=== PATIENT | female | born 1960 | race Caucasian/White ===

== ENCOUNTER → 2018-01-14 08:32 | Outpatient (CLI) | payer BC, SELFPAY ==
--- NOTE | 2018-01-14 08:35 | BI_ITS ---
MAMMOGRAPHY - BILATERAL SCREENING REASON FOR EXAM: Female, 57 years old. Routine annual screening examination. PERTINENT HISTORY: Non-contributory. TECHNIQUE: Digital bilateral breast hayley (3D mammographic acquisition) in the CC and MLO projections. 2-D mediolateral oblique (MLO) and craniocaudad (CC) views of both breasts were obtained. CAD: Full Field Digital Mammography with Computer Added Detection was performed. COMPARISON: Comparison is made with prior study dated November 06, 2016 and September 20, 2015. FINDINGS: Breast Composition: There are scattered areas of fibroglandular density. There are no dominant masses or suspicious calcifications. Skin calcifications are seen. No other significant abnormalities are identified. There has been no significant change since the prior study. BI/SCREENING MAMM (CAD), BILAT IMPRESSION: Stable bilateral screening mammogram. Yearly follow-up mammogram recommended. (A) ASSESSMENT CATEGORY: BIRADS Category 2: Benign. A letter regarding these results will be sent to the patient by the facility within 30 days. Approximately 10% of breast cancers are not detected by mammography. A normal mammogram should not delay biopsy of a clinically suspicious abnormality. [id number] Electronically Signed: Stalin Ramirez MD at 15:24 EDT Tel [phone], Service support ,
== END ==
PROVIDERS: Family Provider Family Medicine; PCP Family Medicine; Visit Provider Family Medicine
DX: Z12.31 Encounter for screening mammogram for malignant neoplasm of breast (principal)
CPT/HCPCS: 77063; 77067

== ENCOUNTER 2018-07-13 08:30 | Outpatient (RCR) | payer BC, SELFPAY ==
--- NOTE | 2018-06-15 18:50 | HP.PTEVAL ---
Patient's Visit Information JUVE OCHOA is a 58 year old F referred to Physical Therapy by Nolberto Thomas with a diagnosis of L piriformis syndrome. Date of Evaluation: 06/15/18 Physical Therapist: Olesya Miller - Visit Plan Frequency: 2x /Week Duration: 4 Weeks Plan: 2X/ week for 4 weeks for L hip stretching (renny piriformis), strengthening, functional activities , gait training with HEP and modalities if needed. - Subjective Subjective: This started in January where she had pain in the L buttcheek. No-z-rays. Pt was treated with Prednizone and got a little better and on Prednizone still every other day. SHe has played with this all summer. It would get better and then it gets worse and she does not want to walk. She has no N&T in her legs. It makes her not sleep well. She can not lay on that side and she wants to sit off that side. Pain takes the pain away but not solving source. Her pain is not everyday. When flared up it hurts to sit, stand and walk. Strong hip issues in the family.... Can not walk when flared up. She has had about 5 flare ups since January. - Pain L hip pain Pain Intensity (Out of 10): 4 - Objective Gait: walks with L hip drop, normal heel to toe gait pattern. IR AROM 33 degrees R and 24 degrees on the L. LE MMT: B hip flex 4-/5, R hip abd 4/5 and L 4-/5, R hip ext 4/5 and L 4-/5, B knee ext/ flex 4+/5. Pt is able to walk on heels and toes. Trunk AROM: flexion 100%, ext 100%, SB B 100%, Rot B 100%. Good B HS length. No B piriformis muscle belly tenderness but tenderness at ischial tuberosity. Tight B piriformis but increased tightness and increase pain on the L. After supine manual pirifomis stretching 30 sec X 3 B pt was able to sit and walk with a little less pain. - Goals Goal 1:: I HEP Goal Time Frame: 2 Weeks Goal 2:: Be able to resume walking without having pain Goal Time Frame: 4-6 Weeks Goal 3:: Be able to sit as long as need be without pain Goal Time Frame: 4-6 Weeks Goal 4:: Increase L piriformis muscle length without having pain Goal Time Frame: 4-6 Weeks Goal 5:: Increase L hip strength to be 4/5 hip flex, abd, ext Goal Time Frame: 4-6 Weeks - Rehabilitation Potential Rehabilitation Potential: Good - Anticipated Interventions Patient/Client Instruction: Educate patient on: Condition, Plan of Care For the Purpose of:: To decrease pain, To decrease swelling/inflammation, To increase ROM, To improve nutrient delivery to tissue, To improve muscle performance and motor function, To improve ability to perform ADL's, To increase tolerance to activity/condition/position, To improve performance and independence with ADL's, To improve ability of physical actions for home/community/work/leisure, To improve gait and locomotor functions, To improve health of tissue, To increase flexibility/ROM Therapeutic Exercise to Include: Strength training, Flexibilty training, Gait and locomotor training, Passive ROM, Active ROM For the Purpose of:: To decrease pain, To decrease swelling/inflammation, To increase ROM, To improve nutrient delivery to tissue, To improve muscle performance and motor function, To improve ability to perform ADL's, To increase tolerance to activity/condition/position, To improve performance and independence with ADL's, To decrease level of supervision to perform tasks, To improve ability of physical actions for home/community/work/leisure, To improve gait and locomotor functions, To improve health of tissue, To decrease soft tissue restriction, To increase flexibility/ROM IF ES: Yes Cryotherapy (ice pack, ice massage): Yes Thermo therapy (hot pack): Yes Ultrasound (thermal/non thermal): Yes For the Purpose of:: To decrease pain, To decrease swelling/inflammation, To increase ROM, To improve nutrient delivery to tissue Thank you for the opportunity to evaluate your patient. For Medicare and Medicare HMO plans, please review the plan of care and approve it. It will need to be FAXED BACK to us at [phone] for Medicare purposes. Please let me know if there are questions or concerns regarding this plan of care. Physician Signature: Date:
--- NOTE | 2018-07-13 09:42 | HP.PTDCSUM ---
HP - PT D/C Summary It has been my pleasure to treat JUVE OCHOA under orders from Nolberto Thomas, for the diagnosis of L piriformis syndrome for a total of 7 visit(s). Discharge Date: 07/13/18 Please see the following information for a summary of their discharge status. - Subjective Subjective: No pain. The last time she had pain was about a week or so ago. Still doing stretches at home, not as regiously. She did go to the [facility]. - Pain L hip pain Pain Intensity (Out of 10): 2 - Overall Improvement % Improvement: 50 - Objective Objective/Function: LE MMT: R hip flex 4/5, and L 4-/5, B hip abd 4/5, B hip ext 3+/5, B knee flex and knee ext 4/5. Pt can sit for 2 hours without pain (that is the longeest she has sat recently) - Goals Goal 1:: I HEP Goal Progress: Goal Met Goal 2:: Be able to resume walking without having pain Goal Progress: Goal Met Goal 3:: Be able to sit as long as need be without pain Goal Progress: Progressing Goal 4:: Increase L piriformis muscle length without having pain Goal Progress: Goal Met Goal 5:: Increase L hip strength to be 4/5 hip flex, abd, ext Goal Progress: Goal Met - Plan Plan: Re check next visit and make sure pt understands HEP - D/C Information Discharge Comments: DC PT to HEP If there are questions or concerns regarding this patient's physical therapy, please feel free to call me at [phone]. Thank you for the referral of this patient. Sincerely, Olesya Miller
== END 2018-07-13 19:00 | disposition home or self-care (01) ==
LOC: PT 08:30
PROVIDERS: Family Provider Family Medicine; PCP Family Medicine; Referring Provider Family Medicine; Visit Provider Family Medicine
DX: G57.02 Lesion of sciatic nerve, left lower limb (principal)
CPT/HCPCS: 97035; 97110; 97161; 97530

== ENCOUNTER → 2018-11-04 14:00 | Outpatient (CLI) | payer BC, SELFPAY ==
--- NOTE | 2018-11-04 14:04 | RAD_ITS ---
STUDY: X-RAY CHEST REASON FOR EXAM: Female, 58 years old. Sarcoidosis TECHNIQUE: PA and lateral views of the chest. COMPARISON: 11/10/2014 FINDINGS: The lungs are clear and expanded. There is no demonstrated pleural abnormality. Normal size heart. Normal mediastinum and rosalee. Normal visualized pulmonary arteries. Normal visualized aortic arch and descending thoracic aorta. Normal visualized thoracic spine. Normal visualized ribs, clavicles, and shoulders. There is no demonstrated abnormality of the visualized soft tissue structures of the upper abdomen. RAD/Chest PA and Lateral IMPRESSION: Normal x-ray examination of the chest. Electronically Signed: Chris Swan DO at 16:03 EDT Tel , Service support ,
== END ==
PROVIDERS: Family Provider Family Medicine; PCP Family Medicine; Referring Provider Family Medicine; Visit Provider Family Medicine
DX: D86.9 Sarcoidosis, unspecified (principal)
CPT/HCPCS: 71046

== ENCOUNTER → 2019-06-30 09:58 | Outpatient (CLI) | payer BC, SELFPAY ==
[2019-07-04 16:22] LABS: HPV Reflexed? NOT INDICATED
== END ==
PROVIDERS: Family Provider Family Medicine; PCP Family Medicine; Referring Provider Family Medicine; Visit Provider Nurse Practitioner Family
DX: Z00.00 Encounter for general adult medical examination without abnormal findings (principal)
CPT/HCPCS: 88175; G0145

== ENCOUNTER → 2019-07-07 08:06 | Outpatient (CLI) | payer BC, SELFPAY ==
[2019-07-07 10:54] LABS: ALB/GLOB Ratio 0.9 RATIO (0.9-2.4); AST(SGOT) 14 U/L (15-37); Alanine Aminotransfer ALT/SGPT 19 U/L (13-56); Albumin, Serum 3.5 g/dL (3.2-5.0); Alkaline Phosphatase 91 U/L (45-117); BUN 22 mg/dL (7-18); BUN/Creat Ratio 25.8 RATIO (10-20); Calcium,Total 8.7 mg/dL (8.5-10.1); Cholesterol 187 mg/dL (200); Creatinine, Serum 0.85 mg/dL (0.55-1.02); EST Glomerular Filtration Rate 73 mL/min (>60); Est Glom Filt Rate - Afr Amer 88 mL/min (>60); Globulin 4.1 g/dL (2.2-4.2); Glucose 88 mg/dL (74-106); Protein, Total 7.6 g/dL (6.4-8.2); Triglycerides 72 mg/dL
[2019-07-07 10:55] LABS: Anion Gap 5 (5-15); Chloride 108 mmol/L (98-107); High Density Lipoprotein 52 mg/dL; Potassium 3.9 mmol/L (3.5-5.1); Sodium Level 141 mmol/L (136-145); Thyroid Stim Hormone (TSH) 0.06 uIU/mL (0.358-3.74); Very Low Density Lipoprotein 14 mg/dL (5-40)
== END ==
PROVIDERS: Nurse Practitioner Family; Family Provider Family Medicine; PCP Family Medicine; Referring Provider Family Medicine; Visit Provider Family Medicine
DX: Z00.00 Encounter for general adult medical examination without abnormal findings (principal); E03.9 Hypothyroidism, unspecified
CPT/HCPCS: 36415; 80053; 80061; 84443

== ENCOUNTER → 2019-07-27 07:58 | Outpatient (CLI) | payer BC, SELFPAY ==
--- NOTE | 2019-07-27 08:00 | BI_ITS ---
MAMMOGRAPHY - BILATERAL SCREENING REASON FOR EXAM: Female, 59 years old. Routine annual screening examination. PERTINENT HISTORY: Non-contributory. TECHNIQUE: Digital bilateral breast thelma (3D mammographic acquisition) in the CC and MLO projections. 2-D mediolateral oblique (MLO) and craniocaudad (CC) views of both breasts were obtained. CAD: Full Field Digital Mammography with Computer Added Detection was performed. COMPARISON: Comparison is made with prior study dated January 14, 2018 and November 06, 2016. FINDINGS: Breast Composition: There are scattered areas of fibroglandular density. There are no dominant masses or suspicious calcifications. No other significant abnormalities are identified. There has been no significant change since the prior study. BI/SCREEN MAMM (CAD) W/TEHLMA BILAT IMPRESSION: Stable bilateral screening mammogram. Yearly follow-up mammogram recommended. (A) ASSESSMENT CATEGORY: BIRADS Category 1: Negative. A letter regarding these results will be sent to the patient by the facility within 30 days. Approximately 10% of breast cancers are not detected by mammography. A normal mammogram should not delay biopsy of a clinically suspicious abnormality. [id number] Electronically Signed: Stalin Ramirez, at 10:23 EST , Service support ,
== END ==
PROVIDERS: Family Provider Family Medicine; PCP Family Medicine; Referring Provider Family Medicine; Visit Provider Family Medicine
DX: Z12.31 Encounter for screening mammogram for malignant neoplasm of breast (principal)
CPT/HCPCS: 77063; 77067

== ENCOUNTER → 2019-10-14 08:43 | Outpatient (CLI) | payer OTHER, SELFPAY ==
[2019-10-14 10:38] LABS: Thyroid Stim Hormone (TSH) 0.35 uIU/mL (0.358-3.74)
== END ==
PROVIDERS: PCP Family Medicine; Referring Provider Family Medicine; Visit Provider Family Medicine
DX: E03.9 Hypothyroidism, unspecified (principal)
CPT/HCPCS: 36415; 84443

== ENCOUNTER → 2019-10-19 10:00 | Outpatient (CLI) | payer OTHER, SELFPAY ==
[2019-10-19 12:56] LABS: T4 Free Direct 1.18 ng/dL (0.76-1.46)
[2019-10-19 13:20] LABS: Vitamin D,25 Hydroxy 25.9 ng/mL
== END ==
PROVIDERS: PCP Family Medicine; Referring Provider Family Medicine; Visit Provider Family Medicine
DX: D86.9 Sarcoidosis, unspecified (principal); E03.9 Hypothyroidism, unspecified
CPT/HCPCS: 36415; 82306; 84439

== ENCOUNTER → 2019-10-26 08:44 | Outpatient (CLI) | payer OTHER, SELFPAY ==
--- NOTE | 2019-10-26 08:54 | US_ITS ---
STUDY: THYROID ULTRASOUND REASON FOR EXAM: Female, 59 years old. NODULES TECHNIQUE: Ultrasound evaluation of the thyroid was performed with real-time and static paz-scale imaging. COMPARISON: None. FINDINGS: RIGHT LOBE: The right lobe of the thyroid gland measures 6.8 x 2.9 x 3.5 cm. There is a heterogeneous echotexture. There are no demonstrated solid, cystic or complex lesions. LEFT LOBE: The left thyroid lobe is surgically absent. ISTHMUS: The isthmus measures 3 mm . The regional lymph nodes are normal. US/Thyroid IMPRESSION: Heterogeneously echogenic mildly enlarged right thyroid lobe. No focal nodule, cyst, or calcification is noted. The left thyroid lobe is surgically absent. Electronically Signed: Jesse Warner MD at 17:29 EDT , Service support ,
--- NOTE | 2019-10-26 09:00 | RAD_ITS ---
STUDY: X-RAY - ESOPHAGUS (BARIUM SWALLOW) WITH FLUOROSCOPY REASON FOR EXAM: Female, 59 years old. DYSPHAGIA; -- HIATAL HERNIA, SILENT REFLUX, PARTIAL THYROIDECTOMY TECHNIQUE: 18 view(s) of the esophagus were obtained following swallowing of barium. FLUOROSCOPY TIME (if supplied): (0:42) minutes/seconds COMPARISON: None. FINDINGS: There is no demonstrated esophageal foreign body. There is no demonstrated stricture or mucosal abnormality. Normal gastroesophageal junction, without a demonstrated hiatal hernia. The patient ingested a 12 mm tablet of barium. The tablet is trapped at the gastroesophageal junction. Normal visualized aortic arch and descending thoracic aorta. Normal visualized pulmonary parenchyma. Normal visualized osseous structures of the thorax. RAD/Esophagus Single Contrast IMPRESSION: The patient ingest a 12 mm tablet of barium. The tablet is trapped at the gastroesophageal junction. Electronically Signed: Stalin Ramirez, at 15:53 EDT , Service support ,
== END ==
PROVIDERS: PCP Family Medicine; Referring Provider Family Medicine; Visit Provider Family Medicine
DX: R13.10 Dysphagia, unspecified (principal); E04.1 Nontoxic single thyroid nodule
CPT/HCPCS: 74220; 76536

== ENCOUNTER → 2020-02-10 10:29 | Outpatient (CLI) | payer OTHER, SELFPAY | PROVIDERS: PCP Family Medicine; Referring Provider Internal Medicine Gastroenterology; Visit Provider Internal Medicine Gastroenterology | DX: Z11.59 Encounter for screening for other viral diseases (principal) | CPT/HCPCS: 87635; G2023; U0003 ==

== ENCOUNTER → 2020-02-16 | Outpatient (CLI) | payer OTHER, SELFPAY ==
--- NOTE | 2020-02-16 10:50 | ESO_PTH ---
PATIENT: JUVE OCHOA LOC: [facility] U#:[id number] AGE/SX: 59/F ROOM: RE02/16/[address]: Dr. Gurpreet De Los Santos MD : 1960 BED: DIS: 02/16/2020 SPEC #: [id number] RECD: 02/16/20 15:00 STATUS: VANESSA HANKS #: [id number] JOSEPHINE: 02/16/20 10:[address]: Gurpreet De Los Santos DEPT: SURGICAL PATHOLOGY RECD BY: Deb Lanza ENTERED: 02/20/20 09:21 SP TYPE: CHRISTOS HAYES DR: Dr. Nolberto Pascual MD [facility] Tissues: Esophagus, NOS Procedures: Surgery Specimen Level IV HEADER OPERATION: EGD with biopsies PRE-OP DIAGNOSIS: Dysphagia / GERD TISSUE SUBMITTED: Esophageal biopsies, rule out EE MICROSCOPIC DIAGNOSIS Esophagus, biopsy: Fragments of benign squamous mucosa. No evidence of inflammation. See comment. AM:jeffy 02/21/20 COMMENT Features of eosinophilic esophagitis are not present in the biopsy. Clinical correlation is suggested. MICROSCOPIC DESCRIPTION Slides are reviewed. GROSS DESCRIPTION Received in fixative is one container labeled with the patient's name and designated esophageal biopsy. The specimen consists of multiple irregular fragments of light zuleta soft tissue that in aggregate measure 1.5 x 0.4 x 0.1 cm. The specimen is totally submitted in one cassette. / SJ:jeffy 02/20/20 TC:5 CPT: 14184
== END | disposition home or self-care (01) ==
LOC: LABSPEC 15:19
PROVIDERS: PCP Family Medicine; Referring Provider Internal Medicine Gastroenterology; Visit Provider Internal Medicine Gastroenterology
DX: R13.10 Dysphagia, unspecified (principal); K21.9 Gastro-esophageal reflux disease without esophagitis
CPT/HCPCS: 88305

== ENCOUNTER → 2020-02-21 10:55 | Outpatient (CLI) | payer OTHER, SELFPAY ==
[2020-02-21 13:00] LABS: T4 Free Direct 1.15 ng/dL (0.76-1.46); Thyroid Stim Hormone (TSH) 0.23 uIU/mL (0.358-3.74)
== END ==
PROVIDERS: PCP Family Medicine; Referring Provider Family Medicine; Visit Provider Family Medicine
DX: E03.9 Hypothyroidism, unspecified (principal)
CPT/HCPCS: 36415; 84439; 84443

== ENCOUNTER → 2020-03-14 | Outpatient (CLI) | payer OTHER, SELFPAY | END | disposition home or self-care (01) | LOC: LABSPEC 10:26 | PROVIDERS: PCP Family Medicine; Referring Provider Registered Nurse; Visit Provider Registered Nurse | DX: Z11.59 Encounter for screening for other viral diseases (principal) | CPT/HCPCS: 87635; U0003 ==

== ENCOUNTER → 2020-07-24 14:33 | Outpatient (CLI) | payer OTHER, SELFPAY ==
[2020-07-24 18:36] LABS: T4 Free Direct 1.16 ng/dL (0.76-1.46); Thyroid Stim Hormone (TSH) 0.91 uIU/mL (0.358-3.74)
== END ==
PROVIDERS: PCP Family Medicine; Referring Provider Family Medicine; Visit Provider Family Medicine
DX: E03.9 Hypothyroidism, unspecified (principal)
CPT/HCPCS: 36415; 84439; 84443

== ENCOUNTER → 2020-10-24 12:05 | Outpatient (CLI) | payer OTHER, SELFPAY ==
[2020-10-24 12:51] LABS: Absolute Lymphocyte Count 1.24 X10^3/uL (0.83-4.51); Absolute Neutrophil Count 2.6 X10^3/uL (2.0-7.7); Basophil# 0.03 X10^3/uL; Basophil% 0.7 % (0-1); Eosinophil# 0.37 X10^3/uL; Eosinophils% 8.1 % (0-5); Hematocrit 43.2 % (37-47); Hemoglobin 13.8 g/dL (12.0-15.0); Lymphocyte # 1.24 X10^3/ul (4.0); Lymphocyte % 27.3 % (19-41); Mean Corp Hgb Conc 31.9 g/dL (32-36); Mean Corpuscular Hgb 29.9 pg (27.0-32.0); Mean Corpuscular Volume 93.7 fL (81-99); Mean Platelet Vol. 10.1 fl (6.2-12.0); Monocyte# 0.34 X10^3/uL; Monocyte% 7.5 % (0-10); NRBC Flagged by Analyzer 0 % (0-5); Neutrophil # 2.55 X10^3/uL (2.7-7.7); Neutrophil % 56.2 % (47-70); Platelet Count 230 K/mm3 (150-450); RBC Distribution Width CV 12.9 % (11.6-14.6); Red Blood Count 4.61 M/mm3 (4.2-5.4); White Blood Count 4.5 K/mm3 (4.4-11.0)
[2020-10-24 13:06] LABS: ALB/GLOB Ratio 0.9 RATIO (0.9-2.4); AST(SGOT) 17 U/L (15-37); Alanine Aminotransfer ALT/SGPT 19 U/L (13-56); Albumin, Serum 3.6 g/dL (3.2-5.0); Alkaline Phosphatase 99 U/L (45-117); Anion Gap 4 (5-15); BUN 16 mg/dL (7-18); BUN/Creat Ratio 18.4 RATIO (10-20); Calcium,Total 8.8 mg/dL (8.5-10.1); Chloride 107 mmol/L (98-107); Creatinine, Serum 0.87 mg/dL (0.55-1.02); EST Glomerular Filtration Rate 71 mL/min (>60); Est Glom Filt Rate - Afr Amer 86 mL/min (>60); Globulin 4.1 g/dL (2.2-4.2); Glucose 88 mg/dL (74-106); Potassium 3.8 mmol/L (3.5-5.1); Protein, Total 7.7 g/dL (6.4-8.2); Sodium Level 142 mmol/L (136-145)
== END ==
PROVIDERS: PCP Family Medicine; Referring Provider Family Medicine; Visit Provider Family Medicine
DX: K57.92 Diverticulitis of intestine, part unspecified, without perforation or abscess without bleeding (principal)
CPT/HCPCS: 36415; 80053; 85025

== ENCOUNTER → 2020-10-24 13:04 | Outpatient (CLI) | payer OTHER, SELFPAY ==
--- NOTE | 2020-10-24 13:05 | CT_ITS ---
STUDY: CT ABDOMEN AND PELVIS WITH CONTRAST REASON FOR EXAM: Female, 60 years old. DIVERTICULITIS RADIATION DOSAGE (If Supplied By Facility): CTDIvol = ( 21.74 ) mGy, DLP = ( 963.28 ) mGycm TECHNIQUE: Transaxial images were obtained from the dome of the diaphragm to the symphysis pubis without oral contrast. Oral and amp; IV Gastrografin and amp; 100mL Isovue-370 was administered. Sagittal and coronal images were reconstructed. Individualized dose optimization techniques were used for this CT. COMPARISON: None. FINDINGS: The visualized lung bases are unremarkable. The visualized portions of the heart are within normal limits. Normal liver. Normal gallbladder and extrahepatic biliary system. Normal spleen. Normal pancreas. Normal bilateral adrenal glands. Normal right kidney. Normal left kidney. Normal visualized stomach. Normal small intestine. Normal colon. The appendix is visualized and appears normal. Normal abdominal aorta. Normal inferior vena cava. Normal retroperitoneum. Normal urinary bladder. Normal abdominal wall. There are diffuse degenerative changes of the visualized lumbar spine. CT/Abdomen/Pelvis WITH Contrast IMPRESSION: There are diffuse degenerative changes of the visualized lumbar spine. No acute abnormality of the abdomen and pelvis. Electronically Signed: Javier Harris MD at 16:44 EST Tel , Service support ,
== END ==
PROVIDERS: PCP Family Medicine; Referring Provider Family Medicine; Visit Provider Family Medicine
DX: K57.92 Diverticulitis of intestine, part unspecified, without perforation or abscess without bleeding (principal)
CPT/HCPCS: 74177; Q9967; A4216

== ENCOUNTER → 2020-11-02 09:57 | Outpatient (CLI) | payer OTHER, SELFPAY ==
[2020-11-02 12:57] LABS: Cholesterol 198 mg/dL (200); High Density Lipoprotein 66 mg/dL; T4 Free Direct 0.97 ng/dL (0.76-1.46); Thyroid Stim Hormone (TSH) 6.74 uIU/mL (0.358-3.74); Triglycerides 54 mg/dL; Very Low Density Lipoprotein 11 mg/dL (5-40)
== END ==
PROVIDERS: PCP Family Medicine; Referring Provider Nurse Practitioner Family; Visit Provider Nurse Practitioner Family
DX: E03.9 Hypothyroidism, unspecified (principal); Z13.220 Encounter for screening for lipoid disorders
CPT/HCPCS: 36415; 80061; 84439; 84443

== ENCOUNTER → 2021-01-04 10:53 | Outpatient (CLI) | payer OTHER, SELFPAY ==
--- NOTE | 2021-01-04 10:53 | BI_ITS ---
MAMMOGRAPHY - BILATERAL SCREENING 3-D TOMOSYNTHESIS REASON FOR EXAM: Female, 60 years old. Routine screening PERTINENT HISTORY: No significant family history. TECHNIQUE: 2-D mammograms and 3-D Tomosynthesis of the breast (s) were performed. CAD was performed. COMPARISON: 07/27/2019 FINDINGS: The breast composition is composed of scattered fibroglandular density. Scattered benign calcifications are seen. No dense spiculated masses or suspicious microcalcifications are identified. No architectural distortion is identified. There is no skin thickening or retraction. There has been no significant change since the prior study. BI/SCRN MAMM (CAD)W/THELMA BILAT IMPRESSION: No mammographic signs of malignancy. Routine yearly mammograms recommended. ASSESSMENT CATEGORY: BIRADS Category 1: Negative. A letter regarding these results will be sent to the patient by the facility within 30 days. FOLLOW UP RECOMMENDATION: Yearly follow up mammogram recommended. (A) Approximately 10% of breast cancers are not detected by mammography. A normal mammogram should not delay biopsy of a clinically suspicious abnormality. Electronically Signed: Kavin Parsons MD at 11:37 EDT , Service support ,
[2021-01-04 12:38] LABS: T4 Free Direct 1.28 ng/dL (0.76-1.46); Thyroid Stim Hormone (TSH) 0.62 uIU/mL (0.358-3.74)
== END ==
PROVIDERS: PCP Family Medicine; Referring Provider Nurse Practitioner Family; Visit Provider Nurse Practitioner Family
DX: Z12.31 Encounter for screening mammogram for malignant neoplasm of breast (principal); E03.9 Hypothyroidism, unspecified
CPT/HCPCS: 36415; 77063; 77067; 84439; 84443

== ENCOUNTER 2021-09-02 11:26 | Outpatient (CLI) | payer BC, SELFPAY ==
--- NOTE | 2021-09-02 11:30 | RAD_ITS ---
STUDY: X-RAY CHEST REASON FOR EXAM: Female, 61 years old. SARCOIDOSIS TECHNIQUE: PA and lateral views of the chest. COMPARISON: Comparison is made with prior study of 11/04/2018. FINDINGS: The lungs are clear and expanded. There is no demonstrated pleural abnormality. Normal size heart. Normal mediastinum and rosalee. Normal visualized pulmonary arteries. Normal visualized aortic arch and descending thoracic aorta. There are diffuse degenerative changes of the visualized thoracic spine. Normal visualized ribs, clavicles, and shoulders. There is no demonstrated abnormality of the visualized soft tissue structures of the upper abdomen. RAD/Chest PA and Lateral IMPRESSION: No acute amount is seen. Electronically Signed: Stalin Ramirez MD at 11:44 EST , Service support ,
== END 2021-09-02 23:59 | disposition short-term general hospital (02) ==
LOC: MTRAD 11:28
PROVIDERS: PCP Family Medicine; Referring Provider Family Medicine; Visit Provider Family Medicine
DX: D86.9 Sarcoidosis, unspecified (principal)
CPT/HCPCS: 71046

== ENCOUNTER 2021-09-05 07:38 | Outpatient (CLI) | payer BC, SELFPAY ==
[2021-09-05 10:04] LABS: Absolute Lymphocyte Count 1.01 X10^3/uL (0.83-4.51); Basophil# 0.04 X10^3/uL; Eosinophil# 0.48 X10^3/uL; Eosinophils% 12.5 % (0-5); Hematocrit 40.5 % (37-47); Hemoglobin 13.2 g/dL (12.0-15.0); Lymphocyte # 1.01 X10^3/ul (0.83-4.51); Lymphocyte % 26.2 % (19-41); Mean Corp Hgb Conc 32.6 g/dL (32-36); Mean Corpuscular Hgb 30.1 pg (27.0-32.0); Mean Corpuscular Volume 92.5 fL (81-99); Monocyte# 0.34 X10^3/uL; Monocyte% 8.8 % (0-10); NRBC Flagged by Analyzer 0 % (0-5); Neutrophil # 1.97 X10^3/uL (2.7-7.7); Neutrophil % 51.2 % (47-70); Platelet Count 221 K/mm3 (150-450); RBC Distribution Width CV 12.9 % (11.6-14.6); Red Blood Count 4.38 M/mm3 (4.2-5.4); White Blood Count 3.9 K/mm3 (4.4-11.0)
[2021-09-05 10:31] LABS: Vitamin D,25 Hydroxy 25.6 ng/mL
[2021-09-05 10:42] LABS: ALB/GLOB Ratio 0.8 RATIO (0.9-2.4); AST(SGOT) 16 U/L (15-37); Alanine Aminotransfer ALT/SGPT 16 U/L (13-56); Albumin, Serum 3.4 g/dL (3.2-5.0); Alkaline Phosphatase 83 U/L (45-117); Anion Gap 2 (5-15); BUN 13 mg/dL (7-18); BUN/Creat Ratio 15.2 RATIO (10-20); Calcium,Total 8.7 mg/dL (8.5-10.1); Chloride 110 mmol/L (98-107); Cholesterol 192 mg/dL (200); Creatinine, Serum 0.85 mg/dL (0.55-1.02); EST Glomerular Filtration Rate 72 mL/min (>60); Est Glom Filt Rate - Afr Amer 87 mL/min (>60); Globulin 4.2 g/dL (2.2-4.2); Glucose 86 mg/dL (74-106); High Density Lipoprotein 57 mg/dL; Protein, Total 7.6 g/dL (6.4-8.2); Sodium Level 142 mmol/L (136-145); T4 Free Direct 1.26 ng/dL (0.76-1.46); Thyroid Stim Hormone (TSH) 0.06 uIU/mL (0.358-3.74); Triglycerides 69 mg/dL; Very Low Density Lipoprotein 14 mg/dL (5-40)
== END 2021-09-05 23:59 | disposition short-term general hospital (02) ==
LOC: MTLAB 07:39
PROVIDERS: PCP Family Medicine; Referring Provider Family Medicine; Visit Provider Family Medicine
DX: E03.9 Hypothyroidism, unspecified (principal); D86.9 Sarcoidosis, unspecified
CPT/HCPCS: 36415; 80053; 80061; 82306; 84439; 84443; 85025

== ENCOUNTER 2021-09-13 14:59 | Outpatient (CLI) | payer BC, SELFPAY ==
--- NOTE | 2021-09-13 15:04 | US_ITS ---
STUDY: THYROID ULTRASOUND REASON FOR EXAM: Female, 61 years old. NODULE Lt thyroidectomy TECHNIQUE: Ultrasound evaluation of the thyroid was performed with real-time and static paz-scale imaging. COMPARISON: Oct 26 2019 9:25am FINDINGS: RIGHT LOBE: The right lobe of the thyroid gland measures 8.3 x 2.8 x 2.7 cm. There is a heterogeneous echotexture. There is a nodule. Inferior nodule measures 18 x 18 x 16 mm. The lesion is solid with regular margins and danilo nodular doppler flow. LEFT LOBE: Surgically absent ISTHMUS: The isthmus measures 3.7 mm. US/Thyroid IMPRESSION: There is a NEW RIGHT nodules. This nodule is solid or almost completely solid, hypoechoic, [id number], smoothly marginated and contains no echogenic foci. TI-RADS points: 7. TI-RADS category: TR5. This nodule is highly suspicious. Recommend FNA evaluation. Electronically Signed: Abebe Webster MD at 16:30 EST ,
== END 2021-09-13 23:59 | disposition short-term general hospital (02) ==
LOC: US 15:03
PROVIDERS: PCP Family Medicine; Referring Provider Family Medicine; Visit Provider Family Medicine
DX: E04.1 Nontoxic single thyroid nodule (principal)
CPT/HCPCS: 76536

== ENCOUNTER → 2021-12-13 | Outpatient (CLI) | payer BC, SELFPAY ==
[2021-12-13 17:58] LABS: T4 Free Direct 1.17 ng/dL (0.76-1.46); Thyroid Stim Hormone (TSH) 0.37 uIU/mL (0.358-3.74)
== END | disposition home or self-care (01) ==
LOC: MTLAB 15:22
PROVIDERS: PCP Family Medicine; Referring Provider Family Medicine; Visit Provider Family Medicine
DX: E03.9 Hypothyroidism, unspecified (principal)
CPT/HCPCS: 36415; 84439; 84443

== ENCOUNTER → 2022-01-07 | Outpatient (CLI) | payer BC, SELFPAY ==
--- NOTE | 2022-01-07 | FLU_PTH ---
PATIENT: JUVE OCHOA LOC: [facility]#:[id number] AGE/SX: 61/F ROOM: RE01/07/[address]: Dr. Que Segura MD : 1960 BED: DIS: 01/07/2022 SPEC #: [id number] RECD: 01/07/22 10:29 STATUS: VANESSA HANKS #: [id number] JOSEPHINE: 01/07/22 00:[address]: Que Segura DEPT: CYTOLOGY RECD BY: Vinnie Marshall ENTERED: 01/07/22 10:30 SP TYPE: Fluid OTHR DR: Dr. Nolberto Pascual MD Tissues: A - Thyroid gland, NOS B - Thyroid gland, NOS Procedures: Special Stain Group II Surgery Specimen Level IV Cytospin Fluid HEADER OPERATION: Right thyroid, fine needle aspiration PRE-OP DIAGNOSIS: Uninodular goiter TISSUE SUBMITTED: A - FNA right thyroid fluid, B - FNA right thyroid x12 slides DIAGNOSIS CYTOLOGY A. Right thyroid nodule fluid, fine needle aspiration (cytospin and cell block): Consistent with chronic lymphocytic thyroiditis. B. Right thyroid nodule, fine needle aspiration (smears): Consistent with chronic lymphocytic thyroiditis. Adequate for evaluation. See comment. DANIELLE:jeffy 01/08/2022 COMMENT Correlation with clinical, radiologic findings and appropriate follow up are necessary. Please make reference to previous specimen ([id number]) left thyroid lobe and isthmus with diagnosis of ?lymphocytic thyroiditis, consistent with Jose?s thyroiditis.? CYTOLOGY STUDY Slides are reviewed. CYTOLOGY GROSS A - Received is 15 ml of red cloudy fluid labeled with the patient's name and and designated per the requisition as right thyroid. Submitted for cytology preparation including cell block. B - Received are 12 smears labeled with the patient's name and designated per the requisition as right thyroid. Submitted for staining. / jeffy 01/07/2022 TC:3 CPT: 26543 x2, 83849
== END | disposition home or self-care (01) ==
LOC: LABSPEC 09:41
PROVIDERS: PCP Family Medicine; Referring Provider Surgery; Visit Provider Surgery
DX: E04.1 Nontoxic single thyroid nodule (principal)
CPT/HCPCS: 88108; 88305; 88313

== ENCOUNTER → 2022-04-29 | Outpatient (CLI) | payer BC, SELFPAY ==
--- NOTE | 2022-04-29 15:13 | BI_ITS ---
MAMMOGRAPHY - BILATERAL SCREENING REASON FOR EXAM: Female, 61 years old. Routine annual screening examination. PERTINENT HISTORY: Non-contributory. TECHNIQUE: Digital bilateral breast thelma (3D mammographic acquisition) in the CC and MLO projections. 2-D mediolateral oblique (MLO) and craniocaudad (CC) views of both breasts were obtained. CAD: Full Field Digital Mammography with Computer Added Detection was performed. COMPARISON: Comparison is made with prior study of 01/04/2021 and 07/27/2019. FINDINGS: Breast Composition: There are scattered areas of fibroglandular density. There are no dominant masses or suspicious calcifications. No other significant abnormalities are identified. There has been no significant change since the prior study. BI/SCRN MAMM (CAD)W/THELMA BILAT IMPRESSION: Stable bilateral screening mammogram. Yearly follow-up mammogram recommended. (A) ASSESSMENT CATEGORY: BIRADS Category 1: Negative. A letter regarding these results will be sent to the patient by the facility within 30 days. Approximately 10% of breast cancers are not detected by mammography. A normal mammogram should not delay biopsy of a clinically suspicious abnormality. [id number] Electronically Signed: Stalin Ramirez MD at 8:24 EDT ,
== END | disposition home or self-care (01) ==
LOC: OPBI 15:10
PROVIDERS: PCP Family Medicine; Referring Provider Family Medicine; Visit Provider Family Medicine
DX: Z12.31 Encounter for screening mammogram for malignant neoplasm of breast (principal)
CPT/HCPCS: 77063; 77067

== ENCOUNTER → 2022-05-22 | Outpatient (CLI) | payer BC, SELFPAY ==
[2022-05-22 17:41] LABS: Absolute Lymphocyte Count 1.18 X10^3/uL (0.83-4.51); Absolute Neutrophil Count 2.6 X10^3/uL (2.0-7.7); Basophil# 0.03 X10^3/uL; Basophil% 0.7 % (0-1); Eosinophil# 0.25 X10^3/uL; Eosinophils% 5.6 % (0-5); Hematocrit 40.5 % (37-47); Hemoglobin 13.3 g/dL (12.0-15.0); Lymphocyte # 1.18 X10^3/ul (0.83-4.51); Lymphocyte % 26.6 % (19-41); Mean Corp Hgb Conc 32.8 g/dL (32-36); Mean Corpuscular Hgb 30.8 pg (27.0-32.0); Mean Corpuscular Volume 93.8 fL (81-99); Monocyte# 0.34 X10^3/uL; Monocyte% 7.7 % (0-10); NRBC Flagged by Analyzer 0 % (0-5); Neutrophil # 2.62 X10^3/uL (2.7-7.7); Neutrophil % 59.2 % (47-70); Platelet Count 241 K/mm3 (150-450); RBC Distribution Width SD 44.8 fl (35.1-43.9); Red Blood Count 4.32 M/mm3 (4.2-5.4); White Blood Count 4.4 K/mm3 (4.4-11.0)
[2022-05-22 18:42] LABS: ALB/GLOB Ratio 0.8 RATIO (0.9-2.4); AST(SGOT) 26 U/L (15-37); Alanine Aminotransfer ALT/SGPT 25 U/L (13-56); Albumin, Serum 3.3 g/dL (3.2-5.0); Alkaline Phosphatase 90 U/L (45-117); Anion Gap 7 (5-15); BUN 17 mg/dL (7-18); BUN/Creat Ratio 16.8 RATIO (10-20); Calcium,Total 8.7 mg/dL (8.5-10.1); Chloride 108 mmol/L (98-107); Cholesterol 200 mg/dL (200); Creatinine, Serum 1.01 mg/dL (0.55-1.02); EST Glomerular Filtration Rate 59 mL/min (>60); Est Glom Filt Rate - Afr Amer 72 mL/min (>60); Globulin 4.3 g/dL (2.2-4.2); Glucose 91 mg/dL (74-106); High Density Lipoprotein 52 mg/dL; Potassium 3.6 mmol/L (3.5-5.1); Protein, Total 7.6 g/dL (6.4-8.2); Sodium Level 142 mmol/L (136-145); T4 Free Direct 1.01 ng/dL (0.76-1.46); Thyroid Stim Hormone (TSH) 0.68 uIU/mL (0.358-3.74); Triglycerides 209 mg/dL; Very Low Density Lipoprotein 42 mg/dL (5-40)
== END | disposition home or self-care (01) ==
LOC: MTLAB 15:48
PROVIDERS: PCP Family Medicine; Referring Provider Family Medicine; Visit Provider Family Medicine
DX: Z00.00 Encounter for general adult medical examination without abnormal findings (principal); E03.9 Hypothyroidism, unspecified
CPT/HCPCS: 36415; 80053; 80061; 84439; 84443; 85025

== ENCOUNTER → 2022-06-05 | Outpatient (CLI) | payer BC, SELFPAY ==
[2022-06-05 10:41] LABS: Anion Gap 3 (5-15); BUN 16 mg/dL (7-18); BUN/Creat Ratio 18.7 RATIO (10-20); Calcium,Total 8.7 mg/dL (8.5-10.1); Chloride 108 mmol/L (98-107); Creatinine, Serum 0.85 mg/dL (0.55-1.02); EST Glomerular Filtration Rate 72 mL/min (>60); Est Glom Filt Rate - Afr Amer 87 mL/min (>60); Glucose 89 mg/dL (74-106); Potassium 4.1 mmol/L (3.5-5.1); Sodium Level 140 mmol/L (136-145)
== END | disposition home or self-care (01) ==
LOC: MTLAB 07:23
PROVIDERS: PCP Family Medicine; Referring Provider Family Medicine; Visit Provider Family Medicine
DX: R94.4 Abnormal results of kidney function studies (principal)
CPT/HCPCS: 36415; 80048

== ENCOUNTER → 2022-07-16 | Outpatient (CLI) | payer BC, SELFPAY ==
--- NOTE | 2022-07-16 14:29 | NEURO ---
NCS and/or EMG Patient Report Ordering Doctor: Nolberto Pascual DATE OF SERVICE: 07/16/22 Iraida presents for electrodiagnostic testing of the right upper limb. She reports numbness and tingling in the right hand. Electrodiagnostic findings: Right median motor nerve demonstrates normal distal latency, amplitude and conduction velocity. Right ulnar motor response within normal limits. Normal right ulnar and median F wave. Prolonged right median sensory latency at the wrist. Borderline prolonged right palmar latency. Normal right ulnar and radial sensory responses. On needle EMG, all muscles tested in the right upper limb showed no evidence of denervation with normal motor unit action potentials. Electrodiagnostic impression: This is an abnormal study in the right upper limb. 1. Electrodiagnostic findings suggestive of right median mononeuropathy. This is consistent with a mild right carpal tunnel syndrome. 2. There is no electrodiagnostic evidence noted for cervical radiculopathy.
== END | disposition home or self-care (01) ==
LOC: PSN 13:12
PROVIDERS: PCP Family Medicine; Referring Provider Family Medicine; Visit Provider Family Medicine
DX: G56.00 Carpal tunnel syndrome, unspecified upper limb (principal)
CPT/HCPCS: 95886; 95910

== ENCOUNTER → 2022-12-11 | Outpatient (CLI) | payer BC, SELFPAY ==
[2022-12-11 18:20] LABS: T4 Free Direct 1.15 ng/dL (0.76-1.46); Thyroid Stim Hormone (TSH) 0.22 uIU/mL (0.358-3.74)
== END | disposition home or self-care (01) ==
LOC: MFPLAB 16:19
PROVIDERS: PCP Family Medicine; Visit Provider Family Medicine
DX: E03.9 Hypothyroidism, unspecified (principal)
CPT/HCPCS: 36415; 84439; 84443

== ENCOUNTER → 2022-12-18 | Outpatient (CLI) | payer BC, SELFPAY ==
--- NOTE | 2022-12-18 13:03 | US_ITS ---
STUDY: THYROID ULTRASOUND REASON FOR EXAM: Female, 62 years old. NODULE TECHNIQUE: Ultrasound evaluation of the thyroid was performed with real-time and static paz-scale imaging. COMPARISON: September 13, 2021 FINDINGS: RIGHT LOBE: The right lobe of the thyroid gland measures 8.3 x 2.8 x 2.7 cm. There is a complex solid nodule measuring approximately 1.3 x 1.3 x 1.1 cm. This has decreased in size since prior exam. LEFT LOBE: Nonvisualized status post lobectomy ISTHMUS: The isthmus measures 3.7 mm . The regional lymph nodes are normal. US/Thyroid IMPRESSION: Persistent small solid nodule in the right lobe of the thyroid which has decreased in size since prior exam. Status post left thyroid lobectomy. Recommend clinical correlation and follow-up studies Electronically Signed: John Newton MD at 20:09 EDT ,
== END | disposition home or self-care (01) ==
PROVIDERS: PCP Family Medicine; Referring Provider Family Medicine; Visit Provider Family Medicine
DX: E04.1 Nontoxic single thyroid nodule (principal)
CPT/HCPCS: 76536

== ENCOUNTER → 2023-06-17 | Outpatient (CLI) | payer BC, SELFPAY ==
[2023-06-17 11:25] LABS: Anion Gap 2 (5-15); BUN 20 mg/dL (7-18); Calcium,Total 8.8 mg/dL (8.5-10.1); Chloride 108 mmol/L (98-107); Cholesterol 192 mg/dL (200); Creatinine, Serum 0.95 mg/dL (0.55-1.02); EST Glomerular Filtration Rate 63 mL/min (>60); Est Glom Filt Rate - Afr Amer 77 mL/min (>60); Free T3 1.8 pg/mL (2.18-3.98); Glucose 85 mg/dL (74-106); High Density Lipoprotein 53 mg/dL; Potassium 3.9 mmol/L (3.5-5.1); Sodium Level 138 mmol/L (136-145); T4 Total, Thyroxin 10.1 ug/dL (4.8-13.9); Thyroid Stim Hormone (TSH) 0.64 uIU/mL (0.358-3.74); Triglycerides 92 mg/dL; Very Low Density Lipoprotein 18 mg/dL (5-40)
== END | disposition home or self-care (01) ==
LOC: MTLAB 07:21
PROVIDERS: PCP Family Medicine; Referring Provider Nurse Practitioner Family; Visit Provider Nurse Practitioner Family
DX: E03.9 Hypothyroidism, unspecified (principal); Z13.1 Encounter for screening for diabetes mellitus; Z13.220 Encounter for screening for lipoid disorders
CPT/HCPCS: 36415; 80048; 80061; 84436; 84443; 84481

== ENCOUNTER → 2024-10-10 | Outpatient (CLI) | payer OTHER, SELFPAY ==
--- NOTE | 2024-10-10 09:34 | RAD_ITS ---
EXAM: XR Chest, 2 Views CLINICAL INDICATION: TECHNIQUE: Frontal and lateral views of the chest. COMPARISON: No relevant prior studies available. FINDINGS: LUNGS AND PLEURAL SPACES: Unremarkable. No consolidation. No pneumothorax. HEART: Unremarkable. No cardiomegaly. MEDIASTINUM: Unremarkable. Normal mediastinal contour. BONES/JOINTS: Unremarkable. No acute fracture. RAD/Chest PA and Lateral IMPRESSION: No acute cardiopulmonary process. Reading Location: [facility]
[2024-10-10 12:47] LABS: Absolute Lymphocyte Count 1.06 X10^3/uL (0.83-4.51); Absolute Neutrophil Count 2.5 X10^3/uL (2.0-7.7); Basophil# 0.03 X10^3/uL; Basophil% 0.7 % (0-1); Eosinophil# 0.25 X10^3/uL; Hematocrit 42.3 % (37-47); Hemoglobin 13.5 g/dL (12.0-15.0); Lymphocyte # 1.06 X10^3/ul (0.83-4.51); Lymphocyte % 25.2 % (19-41); Mean Corp Hgb Conc 31.9 g/dL (32-36); Mean Corpuscular Hgb 30.1 pg (27.0-32.0); Mean Corpuscular Volume 94.2 fL (81-99); Mean Platelet Vol. 9.9 fl (6.2-12.0); Monocyte# 0.36 X10^3/uL; Monocyte% 8.6 % (0-10); NRBC Flagged by Analyzer 0 % (0-5); Neutrophil # 2.49 X10^3/uL (2.7-7.7); Neutrophil % 59.3 % (47-70); Platelet Count 271 K/mm3 (150-450); RBC Distribution Width CV 13.2 % (11.6-14.6); RBC Distribution Width SD 45.7 fl (35.1-43.9); Red Blood Count 4.49 M/mm3 (4.2-5.4); White Blood Count 4.2 K/mm3 (4.4-11.0)
[2024-10-10 20:22] LABS: ALB/GLOB Ratio 0.9 RATIO (0.9-2.4); AST(SGOT) 16 U/L (15-37); Alanine Aminotransfer ALT/SGPT 20 U/L (13-56); Albumin, Serum 3.8 g/dL (3.2-5.0); Alkaline Phosphatase 83 U/L (45-117); Anion Gap 5 (5-15); BUN 15 mg/dL (7-18); BUN/Creat Ratio 17.4 RATIO (10-20); Calcium,Total 9.2 mg/dL (8.5-10.1); Chloride 107 mmol/L (98-107); Creatinine, Serum 0.86 mg/dL (0.55-1.02); EST Glomerular Filtration Rate 71 mL/min (>60); Est Glom Filt Rate - Afr Amer 86 mL/min (>60); Globulin 4.1 g/dL (2.2-4.2); Glucose 87 mg/dL (74-106); Potassium 4.1 mmol/L (3.5-5.1); Protein, Total 7.9 g/dL (6.4-8.2); Sodium Level 141 mmol/L (136-145)
== END | disposition home or self-care (01) ==
LOC: MTLAB 09:33
PROVIDERS: PCP Family Medicine; Referring Provider Dermatology Pediatric Dermatology; Visit Provider Dermatology Pediatric Dermatology
DX: D86.3 Sarcoidosis of skin (principal)
CPT/HCPCS: 36415; 71046; 80053; 85025

== ENCOUNTER → 2024-12-28 | Outpatient (CLI) | payer OTHER, SELFPAY ==
--- NOTE | 2024-12-28 10:07 | BI_ITS ---
EXAM: SCRN MAMM (CAD)W/THELMA BILAT 12/28/2024 CLINICAL HISTORY: F, Age 64 y/o , SCREENING TECHNIQUE: Bilateral screening digital breast tomosynthesis with 2D and 3D images. Computer aided detection. COMPARISON: Prior exam(s) dated 04/29/2022, 01/04/2021, 07/27/2019. FINDINGS: TISSUE DENSITY: The breast tissue is composed of scattered area of fibroglandular density. Bilateral Breast Mammographic Findings: No significant masses, calcifications or other abnormalities are identified. BI/SCRN MAMM (CAD)W/THELMA BILAT IMPRESSION: Right Breast: BIRADS 1 NEGATIVE. Left Breast: BIRADS 1 NEGATIVE. OVERALL FINAL ASSESSMENT: BIRADS 1 NEGATIVE. RECOMMENDATION: Routine annual follow-up in 1 Year A letter with findings and recommendations will be mailed to the patient. Reading Location: [id number]
== END | disposition home or self-care (01) ==
LOC: OPBI 10:06
PROVIDERS: PCP Family Medicine; Referring Provider Family Medicine; Visit Provider Family Medicine
DX: Z12.31 Encounter for screening mammogram for malignant neoplasm of breast (principal)
CPT/HCPCS: 77063; 77067

== ENCOUNTER → 2025-01-04 | Outpatient (CLI) | payer OTHER, SELFPAY ==
[2025-01-04 10:29] LABS: Absolute Lymphocyte Count 1.12 X10^3/uL (0.83-4.51); Absolute Neutrophil Count 2.2 X10^3/uL (2.0-7.7); Basophil# 0.04 X10^3/uL; Eosinophil# 0.48 X10^3/uL; Eosinophils% 11.6 % (0-5); Hematocrit 41.1 % (37-47); Hemoglobin 13.6 g/dL (12.0-15.0); Lymphocyte # 1.12 X10^3/ul (0.83-4.51); Lymphocyte % 27.1 % (19-41); Mean Corp Hgb Conc 33.1 g/dL (32-36); Mean Corpuscular Hgb 30.9 pg (27.0-32.0); Mean Corpuscular Volume 93.4 fL (81-99); Mean Platelet Vol. 9.7 fl (6.2-12.0); Monocyte# 0.31 X10^3/uL; Monocyte% 7.5 % (0-10); NRBC Flagged by Analyzer 0 % (0-5); Neutrophil # 2.17 X10^3/uL (2.7-7.7); Neutrophil % 52.3 % (47-70); POSITIVE MORPHOLOGY YES; Platelet Count 241 K/mm3 (150-450); RBC Distribution Width CV 12.9 % (11.6-14.6); RBC Distribution Width SD 44.4 fl (35.1-43.9); White Blood Count 4.1 K/mm3 (4.4-11.0)
[2025-01-04 10:30] LABS: Differential Indicated SCAN CRITERIA MET
[2025-01-04 10:41] LABS: Color, Urine Yellow (Yellow); Glucose, Dipstick Normal (Normal); Ketone-Dipstick Negative (Negative); Leukocyte Esterase-Dipstick Negative /ul (Negative); Nitrite-Dipstick Negative (Negative); Occult Blood-Urine 10 /ul (Negative); Protein-Dipstick Negative (Negative); Urine Bilirubin Dipstick Negative (Negative); Urine Clarity Clear (Clear); Urine Urobilinogen Normal (Normal)
[2025-01-04 11:35] LABS: Reactive Lymphocyte 1+
[2025-01-04 12:01] LABS: ALB/GLOB Ratio 1.1 RATIO (0.9-2.4); AST(SGOT) 22 U/L (<=31); Alanine Aminotransfer ALT/SGPT 13 U/L (<=34); Albumin, Serum 3.8 g/dL (3.4-4.8); Alkaline Phosphatase 82 U/L (35-104); Anion Gap 10 (5-15); BUN 17 mg/dL (4-19); BUN/Creat Ratio 19.7 RATIO (10-20); Calcium,Total 8.9 mg/dL (7.6-11.0); Carbon Dioxide 24.9 mmol/L (21.0-32.0); Chloride 104 mmol/L (98-108); Creatinine, Serum 0.85 mg/dL (0.70-1.20); EST Glomerular Filtration Rate 77 (>60); Globulin 3.6 g/dL (2.2-4.2); Glucose 97 mg/dL (70-99); Protein, Total 7.4 g/dL (5.9-8.4); Sodium Level 139 mmol/L (133-145); Thyroid Stim Hormone (TSH) 0.156 uIU/mL (0.300-4.200); Total Bilirubin 0.79 mg/dL (0.00-1.30)
== END | disposition home or self-care (01) ==
PROVIDERS: PCP Family Medicine; Referring Provider Family Medicine; Visit Provider Family Medicine
DX: D86.3 Sarcoidosis of skin (principal); I78.8 Other diseases of capillaries; N39.0 Urinary tract infection, site not specified; Z79.899 Other long term (current) drug therapy; E03.9 Hypothyroidism, unspecified
CPT/HCPCS: 36415; 80053; 81002; 84439; 84443; 85025; 87086

== ENCOUNTER → 2025-02-16 | Outpatient (CLI) | payer OTHER, SELFPAY ==
[2025-02-16 12:30] LABS: Hematocrit 43.6 % (37-47); Hemoglobin 14.1 g/dL (12.0-15.0); Immature Granulocytes Count 0.040 X10^3/uL (0.0-0.0); Mean Corp Hgb Conc 32.3 g/dL (32-36); Mean Corpuscular Volume 92.4 fL (81-99); Mean Platelet Vol. 9.9 fl (6.2-12.0); NRBC Flagged by Analyzer 0 % (0-5); Platelet Count 304 K/mm3 (150-450); RBC Distribution Width CV 12.7 % (11.6-14.6); RBC Distribution Width SD 43.0 fl (35.1-43.9); Red Blood Count 4.72 M/mm3 (4.2-5.4); White Blood Count 5.4 K/mm3 (4.4-11.0)
[2025-02-16 12:46] LABS: AST(SGOT) 24 U/L (<=31); Alanine Aminotransfer ALT/SGPT 19 U/L (<=34); Albumin, Serum 4.1 g/dL (3.4-4.8); Alkaline Phosphatase 84 U/L (35-104); Anion Gap 9 (5-15); BUN 21 mg/dL (4-19); BUN/Creat Ratio 23.3 RATIO (10-20); Calcium,Total 9.4 mg/dL (7.6-11.0); Carbon Dioxide 24.6 mmol/L (21.0-32.0); Chloride 105 mmol/L (98-108); Globulin 3.6 g/dL (2.2-4.2); Glucose 99 mg/dL (70-99); Potassium 4.6 mmol/L (3.3-5.1)
== END | disposition home or self-care (01) ==
PROVIDERS: PCP Family Medicine; Referring Provider Family Medicine; Visit Provider Dermatology Pediatric Dermatology
DX: D86.3 Sarcoidosis of skin (principal); I78.8 Other diseases of capillaries; Z79.899 Other long term (current) drug therapy
CPT/HCPCS: 36415; 80053; 85025

== ENCOUNTER 2025-06-23 08:00 | Outpatient (RCR) | payer OTHER, SELFPAY ==
--- NOTE | 2025-05-26 16:13 | HP.PTEVAL_ITS ---
Patient's Visit Information Visit Information Visit Information: JUVE OHCOA is a 64 year old F referred to Physical Therapy by LISA RileyC with a diagnosis of SCAITICA. Date of Evaluation: 05/26/25 Physical Therapist: Zach Bruner, PT, Cert MDT, OCS Visit Plan Frequency: 2x /Week Duration: 4 Weeks Plan: PT INTERVENTIONS DLS ,SO EX'S ,FLEXABILITY BLE ,ACTIVITY MODIFICATION AND MODALTIES PRN Subjective Subjective: This 64 y/o female presents to physical therapy with lumbar radiculopathy bilateral legs. Patient has had symptoms for ~ 1 year . Patient symptoms insidious onset pain . Patient has symptoms symmetrical lumbar and radiates hamstrings to knee. Seen [employer] tried prednisone helped ,no imaging . Patient PT [employer] through work and provided some ex's which helped. Patient Aggravating factors standing ,walking , stairs lifting. Symptoms mostly worse in the morning. Alleviating rest. Denies paresthesia/tingling-. Coughing./sneezing -. Bowel/bladder -Patient symptoms affects sleeping. Patient did see DR Guidry and recommend muscle relaxer. Patient condition affects ADLS and housework tasks SOCIAL: VOCATION: retired Pain Bilateral Back: Pain Intensity (Out of 10): 3 Pain Intensity Range: 8 Bilateral Lower Extremity: Pain Intensity (Out of 10): 0 Pain Intensity Range: 8 Comment: hamstrings Objective Objective: POSTURE: mild forward posture GAIT: reciprocal pattern PALAPTION: unremarkable NEURO: denies paresthesia/tingling ,reflexes L3-4 ,4-5,L5-S 1/3 MMT: quads/hams 4/5 ,ankle 4./5 ,hip flexion 4-/5 LUMBAR ROM: flexion WFL ,extension min loss ,extension min loss Special Tests L/S Slump test left side: Negative L/S Slump test right side: Negative L/S Left Straight Leg Raise: Negative L/S Right Straight Leg Raise: Negative Lumbar Standing: Flexion - Mechanical Response: No effect Lumbar Standing: Flexion - Symptoms During Testing: No effect Lumbar Standing: Flexion - Symptoms After Testing: No effect Lumbar Standing: Extension - Mechanical Response: No effect Lumbar Standing: Extension - Symptoms During Testing: Increases Lumbar Standing: Extension - Symptoms After Testing: No worse Lumbar Standing: Right Side Glides - Mechanical Response: No effect Lumbar Standing: Right Side Monroe - Symptoms During Testing: No effect Lumbar Standing: Right Side Monroe - Symptoms After Testing: No effect Lumbar Standing: Left Side Monroe - Mechanical Response: No effect Lumbar Standing: Left Side Monroe - Symptoms During Testing: No effect Lumbar Standing: Left Side Monroe - Symptoms After Testing: No effect Lumbar Lying: Flexion - Mechanical Response: No effect Lumbar Lying: Flexion - Symptoms During Testing: Increases Lumbar Lying: Flexion - Symptoms After Testing: Worse Lumbar Lying: Extension - Mechanical Response: No effect Lumbar Lying: Extension - Symptoms During Testing: Decreases Lumbar Lying: Extension - Symptoms After Testing: Better Balance/Special Test Scores Oswestry Low Back Score: 19 Goals Goal 1:: Patient to be I with HEP for back Goal Time Frame: 4-6 Weeks Goal 2:: Patient to improve lumbar ROM for function of recovery for housework Goal Time Frame: 4-6 Weeks Goal 3:: Patient be able to walk/stand w/o symptoms for ADL Goal Time Frame: 4-6 Weeks Goal 4:: Patient to demonstrate 50% improvement with less pain and improved function Goal Time Frame: 4-6 Weeks Goal 5:: Patient to improve back oswestry score by 5 points to improve QOL Goal Time Frame: 4-6 Weeks Rehabilitation Potential Physical Therapy Diagnosis: This patient has lumbar radiculopathy with pain in legs worse with positioning and motion testing worse with walking /standing and in morning thus benefit from skilled PT Rehabilitation Potential: Good Anticipated Interventions Patient/Client Instruction: Educate patient on: Condition and Plan of Care For the Purpose of:: To decrease pain, To increase ROM, To improve muscle performance and motor function, To improve ability to perform ADL's, To increase tolerance to activity/condition/position, To improve performance and independence with ADL's, To improve ability of physical actions for home/community/work/leisure, To improve gait and locomotor functions, To improve health of tissue, To decrease soft tissue restriction and To increase flexibility/ROM Therapeutic Exercise to Include: Strength training, Postural training, Flexibilty training, Dynamic Lumbar Stabilization and So Exercises For the Purpose of:: To decrease pain, To increase ROM, To improve muscle performance and motor function, To increase tolerance to activity/condition/position, To improve ability of physical actions for home/community/work/leisure, To improve gait and locomotor functions, To improve health of tissue, To decrease soft tissue restriction and To increase flexibility/ROM TENS: Yes IF ES: Yes Cryotherapy (ice pack, ice massage): Yes Thermo therapy (hot pack): Yes Ultrasound (thermal/non thermal): Yes For the Purpose of:: To decrease pain, To increase ROM, To improve nutrient delivery to tissue, To increase oxygenation perfusion, To improve health of tissue and To decrease soft tissue restriction Text: Thank you for the opportunity to evaluate your patient. For Medicare and Medicare HMO plans, please review the plan of care and approve it. It will need to be FAXED BACK to us at [phone] for Medicare purposes. For Medicare only, by signing this I certify the plan of care. Please let me know if there are questions or concerns regarding this plan of care. Physician Signature: Date:
--- NOTE | 2025-06-23 08:28 | HP.PTDCSUM ---
Discharge Summary D/C summary: It has been my pleasure to treat JUVE OCHOA referred by Wilfrido Cantu NP-C, with the diagnosis of SCAITICA for a total of 9 visit(s). Discharge Date: 06/23/25 Please see the following information for a summary of their discharge status. Subjective Subjective: Back pain no spasms Legs feel weak -Doing ex's - Pain Bilateral Back: Pain Intensity (Out of 10): 0 Bilateral Lower Extremity: Pain Intensity (Out of 10): 0 Objective Objective/Function: POSTURE: mild forward posture GAIT: reciprocal pattern PALAPTION: unremarkable NEURO: denies paresthesia/tingling ,reflexes L3-4 ,4-5,L5-S 1/3 MMT: quads/hams 4/5 ,ankle 4/5 ,hip flexion 4-/5 LUMBAR ROM: flexion WFL ,extension min loss ,extension min loss Goals Goal 1:: Patient to be I with HEP for back Goal Progress: Goal Met Goal 2:: Patient to improve lumbar ROM for function of recovery for housework Goal Progress: Goal Met Goal 3:: Patient be able to walk/stand w/o symptoms for ADL Goal Progress: Goal Met Goal 4:: Patient to demonstrate 50% improvement with less pain and improved function Goal Progress: Goal Met Goal 5:: Patient to improve back oswestry score by 5 points to improve QOL Goal Progress: Goal Met Plan Plan: HEP D/C Information Discharge Comments: HEP d/c sentence: If there are questions or concerns regarding this patient's physical therapy, please feel free to call me at [phone]. Thank you for the referral of this patient. Sincerely, Zach Bruner, PT, Cert MDT, OCS Balance/Gait/Functional tests Balance/Special Test Scores Oswestry Low Back Score: 7
== END 2025-06-23 19:00 | disposition home or self-care (01) ==
LOC: PT 08:00
PROVIDERS: PCP Family Medicine
DX: M54.30 Sciatica, unspecified side (principal)
CPT/HCPCS: 97014; 97032; 97110; 97162; 97530; G0283